=== PATIENT | male | born 1995 | race Two or more races ===

== ENCOUNTER 2022-03-03 17:36 | Inpatient (IN) | payer BC ==
[~2022-03-03] VITALS: Ht 188 cm; Wt 113.4 kg
--- NOTE | 2022-03-03 17:45 | NUR ---
FIONARA 40 C/O SEIZURE. PT SEIZING UPON ARRIVAL. PLACED ON BED, APPLIED O2 15LIT. VIA NRM SATURATING AT 98%.
[2022-03-03 18:00] LABS: BASOPHILS # (AUTO) 0.1 K/uL (0.0-0.2); BASOPHILS % (AUTO) 0.4 % (0.0-2.0); EOSINOPHILS % (AUTO) 0.1 % (0.0-6.0); HEMATOCRIT 51 % (39-51); HEMOGLOBIN 16.7 g/dL (13.5-17.5); LYMPHOCYTES # (AUTO) 2.3 K/uL (0.8-4.8); LYMPHOCYTES % (AUTO) 12.7 % (20.0-44.0); MEAN CORPUSCULAR HGB CONC 33 g/dl (31.0-36.0); MEAN CORPUSCULAR VOLUME 90 fL (80-96); MONOCYTES # (AUTO) 1.5 K/uL (0.1-1.30); MONOCYTES % (AUTO) 8.1 % (2.0-12.0); NEUTROPHILS # (AUTO) 14.2 K/uL (1.8-8.9); NEUTROPHILS % (AUTO) 78.7 % (43.0-81.0); PLATELET COUNT (AUTO) 386 K/uL (150-450); RED BLOOD CELL COUNT(AUTO) 5.62 MIL/uL (4.5-6.0); WHITE BLOOD COUNT (AUTO) 18.1 K/uL (4.3-11.0)
[2022-03-03] MEDS ORDERED: LACOSAMIDE 200 MG in IV NS 0.9% 100 ML IV ONE (18:00)
[2022-03-03] MEDS ORDERED: IV NS 0.9% 1,000 ML IV ONE ×2 (18:00→19:30)
--- NOTE | 2022-03-03 18:00 | NUR ---
IN HOUSE COUNSEL AT BEDSIDE
[2022-03-03 18:08] LABS: CALCIUM, SERUM 9.2 mg/dL (8.5-10.1); CREATININE 1.9 mg/dL (0.6-1.3); POTASSIUM 4.2 mmol/L (3.5-5.1)
--- NOTE | 2022-03-03 19:38 | NUR ---
SWAB FOR COVID19 SENT TO LAB
[2022-03-03] MEDS ORDERED: LORAZEPAM INJ 2 MG/ML VIAL ONE (20:36)
--- NOTE | 2022-03-03 20:45 | NUR ---
PATIENT HAD ANOTHER SEIZURE ATIVAN 2MG IV GIVEN. WILL CONTINUE TO MONITOR
[2022-03-03] MEDS ORDERED: LORAZEPAM INJ 2 MG/ML VIAL IV ONE (21:00)
--- NOTE | 2022-03-03 21:02 | NUR ---
[facility] PAGED PER DR DELEON,
[2022-03-03] MEDS ORDERED: ONDANSETRON HCL/PF 4 MG/2 ML VIAL IVP PRN (21:30)
[2022-03-03] MEDS ORDERED: ACETAMINOPHEN 325 MG TABLET PO PRN (21:30)
[2022-03-03] MEDS ORDERED: hydrALAZINE HCL IV 20 MG VIAL IV PRN (21:30)
[2022-03-03] MEDS ORDERED: MORPHINE SULFATE INJ 2 MG/ML DISP.SYRIN IV PRN (21:30)
[2022-03-03] MEDS ORDERED: LORAZEPAM INJ 2 MG/ML VIAL IV PRN (21:30)
[2022-03-03 22:01] LABS: BASOPHILS % (AUTO) 0.2 % (0.0-2.0); HEMATOCRIT 44 % (39-51); HEMOGLOBIN 14.7 g/dL (13.5-17.5); LYMPHOCYTES # (AUTO) 0.8 K/uL (0.8-4.8); MEAN CORPUSCULAR HGB CONC 33 g/dl (31.0-36.0); MEAN CORPUSCULAR VOLUME 91 fL (80-96); MONOCYTES % (AUTO) 7.4 % (2.0-12.0); NEUTROPHILS % (AUTO) 86.4 % (43.0-81.0); PLATELET COUNT (AUTO) 274 K/uL (150-450); RED BLOOD CELL COUNT(AUTO) 4.91 MIL/uL (4.5-6.0); WHITE BLOOD COUNT (AUTO) 13.9 K/uL (4.3-11.0)
[2022-03-03 22:15] LABS: SITE, VBG Other; VBG MetHb 0.7 %; VBG O2Hb 79.9 %; VENT MODE, VBG VBG
[2022-03-03 22:32] LABS: ALANINE AMINOTRANSFERASE 41 U/L (12-78); ALBUMIN 2.9 g/dL (3.4-5.0); ALKALINE PHOSPHATASE 70 U/L (46-116); ASPARTATE AMINOTRANSFERASE 24 U/L (15-37); BILIRUBIN,TOTAL 0.3 mg/dL (0.2-1.0); CALCIUM, SERUM 8.3 mg/dL (8.5-10.1); CARBON DIOXIDE 16 mmol/L (21-32); CHLORIDE 111 mmol/L (98-107); CREATININE 1.7 mg/dL (0.6-1.3); GLUCOSE 104 mg/dL (74-106); POTASSIUM 4.1 mmol/L (3.5-5.1); SODIUM SERUM 140 mmol/L (136-145); TOTAL PROTEIN, SERUM 6.5 g/dL (6.4-8.2); UREA NITROGEN, BLOOD 16 mg/dL (7-18)
--- NOTE | 2022-03-03 23:19 | NUR ---
REPORT GIVEN TO [facility] ROOM 317-1 FOR SOPHIA
[2022-03-04 00:01] LABS: BILIRUBIN,DIRECT 0.2 mg/dL (0.0-0.2)
--- NOTE | 2022-03-04 00:17 | NUR ---
noc rn note just got off the phone with patient's Diane # [phone]. made aware of patient's condition and asked to bring list of patient's home medications tomorrow when she visits. all questions and concerns answered.
--- NOTE | 2022-03-04 00:19 | NUR ---
noc rn note returned call to [facility]. about codeine allergy, that per patient's , mom said that Morphine is okay but unknown if patient ever had morphine. asked pharmacist to hold medication for now till further clarification is made when and mom visits tomorrow.
[2022-03-04] MEDS: IV NS 0.9% 1,000 ML IV SCH ×2 (00:44→11:13)
--- NOTE | 2022-03-04 01:46 | NUR ---
ADMISSION RN NOTE PATIENT BROUGHT IN UNIT AT 2330 PM ACCOMPANIED BY 2 ER PERSONNELS VIA Ovuline. NO S/S OF APPARENT DISTRESS ON 3LPM OF O2 VIA DE. PATIENT VERY SOMNOLENT WHEN HE WAS TRANSFERRED IN UNIT AND COULD BARELY OPEN HIS EYES BUT PERRLA WAS NOTED. BELONGINGS CHECKED. NEW ID BAND ON PATIENT. IV ACCESS NOTED ON RIGHT AC #20G-- STARTED ON NS @75MLS/HR ORDERED. PATIENT SPOUSE WAS CALLED FOR ADMISSION QUESTION. PATIENT PUT FULL CODE FOR NOW WISHES. PATIENT DOES NOT SMOKE AND PER , PATIENT HAS ONLY BEEN DRINKING LAST WEEK WINE, ETC. AND ALSO HAS NOT BEEN DRINKING WATER WHICH PER MAY HAVE TRIGGERED THE PATIENTS SEIZURES. PER PATIENT IS UP-TO-DATE WITH HER FLU AND COVID VACCINES, EVEN THE BOOSTER BUT UNKNOWN TO WHEN THE DATES ARE. PATIENT ON TELE MONITOR READING ST ON ADMISSION 122 BPM AND CURRENTLY SR AT THIS TIME WITH 94 BPM. ADMISSION V/S FOLLOWS: 123/78, HR 118, RR-20, SATURATION 100% ON 3LPM OF O2, AND TEMP 99.5. SEIZURE PRECAUTION IN PLACE, SAFETY IN PLACE. WILL MONITOR PATIENT FOR NOW.
--- NOTE | 2022-03-04 03:15 | NUR ---
noc rn note patient woke up at around 0300 am and got up of bed, was very confused and still disoriented. not answering questions. just got up and flagged his penis around and peed all over the floor and bed also pulling out his lines like his condom cath and trying to pull out his IV line. RN and SUBCONTRACT ADMINISTRATOR present at that time so no harm was done on the patient and eventually went back to bed and slept. will continue to monitor.
[2022-03-04 04:00] VITALS: BP 130/80
[2022-03-04 07:00] VITALS: BP 132/80
[2022-03-04 07:29] LABS: ALBUMIN 3.4 g/dL (3.4-5.0); BILIRUBIN,TOTAL 0.5 mg/dL (0.2-1.0); CALCIUM, SERUM 8.8 mg/dL (8.5-10.1); CREATININE 1.4 mg/dL (0.6-1.3); MAGNESIUM 2.5 mg/dL (1.8-2.4); PHOSPHORUS 3.2 mg/dL (2.5-4.9); POTASSIUM 3.7 mmol/L (3.5-5.1); TOTAL PROTEIN, SERUM 6.9 g/dL (6.4-8.2)
--- NOTE | 2022-03-04 07:52 | NUR ---
RN OPENING NOTE Patient is now alert, oriented x 3 to 4, verbally responsive. No signs of seizure activity, PERRLA, no signs of distress, denies pain. Patient stated he was able to sleep some during the night. Lung sounds clear to auscultation, positive bowel sounds, heart sounds WNL. Telemetry reading shows a range of NSR 80s/90s to ST in 100s. Safety measures in place with seizure precautions with wall suction in place and padded siderails with bed in low position, siderails up, and call light within reach. Identification band secure on wrist and correct.
[2022-03-04 07:55] LABS: BASOPHILS % (AUTO) 0.2 % (0.0-2.0); HEMATOCRIT 43 % (39-51); HEMOGLOBIN 14.9 g/dL (13.5-17.5); LYMPHOCYTES # (AUTO) 1.6 K/uL (0.8-4.8); LYMPHOCYTES % (AUTO) 13.6 % (20.0-44.0); MEAN CORPUSCULAR HGB CONC 35 g/dl (31.0-36.0); MEAN CORPUSCULAR VOLUME 88 fL (80-96); MONOCYTES # (AUTO) 1.1 K/uL (0.1-1.30); MONOCYTES % (AUTO) 9.3 % (2.0-12.0); NEUTROPHILS # (AUTO) 8.9 K/uL (1.8-8.9); NEUTROPHILS % (AUTO) 76.9 % (43.0-81.0); PLATELET COUNT (AUTO) 264 K/uL (150-450); RED BLOOD CELL COUNT(AUTO) 4.85 MIL/uL (4.5-6.0); WHITE BLOOD COUNT (AUTO) 11.5 K/uL (4.3-11.0)
[2022-03-04] MEDS: LamoTRIgine 100 MG TABLET PO SCH ×2 (08:41→20:25)
[2022-03-04] MEDS ORDERED: LACOSAMIDE 200 MG in IV NS 0.9% 100 ML IV SCH ×4 (09:00)
[2022-03-04] MEDS ORDERED: TOPIRAMATE 100 MG TABLET PO SCH (09:00)
[2022-03-04] MEDS ORDERED: LACO200T2 PO (09:08)
[2022-03-04] MEDS ORDERED: TOPI200C6 PO (09:08)
[2022-03-04] MEDS ORDERED: LAMO200T52 PO (09:08)
[2022-03-04] MEDS ORDERED: DIAZ10TA4 PO (09:11)
[2022-03-04] MEDS: LACOSAMIDE 200 MG in IV NS 0.9% 100 ML IV SCH ×2 (09:28→20:21)
[2022-03-04 10:08] LABS: CALCIUM, SERUM 8.9 mg/dL (8.5-10.1); MAGNESIUM 2.4 mg/dL (1.8-2.4)
[2022-03-04 12:00] VITALS: BP 136/87
[2022-03-04] MEDS: TROKENDI 200 MG PO SCH (15:47)
[2022-03-04 16:00] VITALS: BP 130/82
[2022-03-04] MEDS ORDERED: TOPIRAMATE 200 MG PO SCH (18:00)
--- NOTE | 2022-03-04 18:27 | NUR ---
RN Closing Note- Patient is now alert, oriented x person , verbally responsive. No signs of seizure activity, PERRLA,. Lung sounds clear to auscultation, positive bowel sounds, heart sounds WNL. Telemetry reading shows a range of NSR 80s/90s. CT neg, labs WNL, more interactive. Safety measures in place with seizure precautions with wall suction in place and padded siderails with bed in low position, siderails up, and call light within reach.
[2022-03-04 18:44] LABS: BILIRUBIN,URINE NEGATIVE (NEGATIVE); COLOR,URINE YELLOW (YELLOW); LEUKOCYTE ESTERASE ,URINE NEGATIVE (NEGATIVE); NITRITE, URINE NEGATIVE (NEGATIVE); PROTEIN,URINE NEGATIVE (NEGATIVE); UGLUCOSE NEGATIVE (NEGATIVE); UROBILINOGEN,URINE 0.2 EU/dL (0.2)
--- NOTE | 2022-03-04 20:00 | NUR ---
RN OPENING NOTES RECEIVED PATIENT LYING AWAKE IN BED. A/O X3. BREATHING IN ROOM AIR, TOLERATING WELL. IV ACCESS AT RIGHT AC #20, INFUSING NS 75ML/HR, PATENT AND INFUSING WELL. NO SIGNS OF RESPIRATORY DISTRESS. ON SEIZURE PRECAUTION, PADDED SIDE RAILS. SAFETY PRECAUTIONS INITIATED, SIDE RAILS UP, BED LOCKED AND LOWERED, CALL LIGHT WITHIN REACH. WILL CONTINUE TO MONITOR.
[2022-03-05] MEDS: IV NS 0.9% 1,000 ML IV SCH (00:45)
[2022-03-05 06:36] LABS: BASOPHILS % (AUTO) 0.3 % (0.0-2.0); EOSINOPHILS % (AUTO) 1.4 % (0.0-6.0); HEMATOCRIT 40 % (39-51); HEMOGLOBIN 13.6 g/dL (13.5-17.5); LYMPHOCYTES % (AUTO) 37.1 % (20.0-44.0); MEAN CORPUSCULAR HGB CONC 34 g/dl (31.0-36.0); MEAN CORPUSCULAR VOLUME 88 fL (80-96); MONOCYTES % (AUTO) 11.7 % (2.0-12.0); NEUTROPHILS % (AUTO) 49.5 % (43.0-81.0); PLATELET COUNT (AUTO) 242 K/uL (150-450); RED BLOOD CELL COUNT(AUTO) 4.49 MIL/uL (4.5-6.0); WHITE BLOOD COUNT (AUTO) 8.2 K/uL (4.3-11.0)
--- NOTE | 2022-03-05 06:55 | NUR ---
RN CLOSING NOTES PATIENT LYING ASLEEP IN BED. A/O X3. BREATHING IN ROOM AIR, TOLERATING WELL. IV ACCESS AT RIGHT AC #20, INFUSING NS 75ML/HR, PATENT AND INFUSING WELL. NO SIGNS OF RESPIRATORY DISTRESS. DUE MEDS GIVEN. ON SEIZURE PRECAUTION, PADDED SIDE RAILS. SAFETY PRECAUTIONS INITIATED, SIDE RAILS UP, BED LOCKED AND LOWERED, CALL LIGHT WITHIN REACH. WILL ENDORSE TO NEXT SHIFT RN FOR SOPHIA.
[2022-03-05 06:57] LABS: CALCIUM, SERUM 8.6 mg/dL (8.5-10.1); CREATININE 1.3 mg/dL (0.6-1.3); MAGNESIUM 2.1 mg/dL (1.8-2.4); PHOSPHORUS 3.8 mg/dL (2.5-4.9); POTASSIUM 3.5 mmol/L (3.5-5.1)
--- NOTE | 2022-03-05 07:50 | NUR ---
RN OPENING NOTES RECEIVED PATIENT LYING AWAKE IN BED. A/O X3. MUCH MORE INTERACTIVE THAN PREVIOUSLY REPORTED. HIS AFFECT IS APPROPRIATE, EATING BREAKFAST. BREATHING IN ROOM AIR, TOLERATING WELL. IV ACCESS AT RIGHT AC #20, INFUSING NS 75ML/HR, PATENT AND INFUSING WELL. NO SIGNS OF RESPIRATORY DISTRESS OR SEIZURE ACTIVITY. ON SEIZURE PRECAUTION, PADDED SIDE RAILS. SAFETY PRECAUTIONS INITIATED, SIDE RAILS UP, BED LOCKED AND LOWERED, CALL LIGHT WITHIN REACH. WILL CONTINUE TO MONITOR.
[2022-03-05] MEDS: LACOSAMIDE 200 MG in IV NS 0.9% 100 ML IV SCH (09:06)
[2022-03-05] MEDS: LamoTRIgine 100 MG TABLET PO SCH (09:07)
[2022-03-05] MEDS: TROKENDI 200 MG PO SCH (09:07)
[2022-03-05] MEDS ORDERED: TOPI200T PO (09:57)
[2022-03-05] MEDS ORDERED: LAMO100T2 PO (09:57)
[2022-03-05] MEDS ORDERED: LACO200T2 PO (09:57)
--- NOTE | 2022-03-05 12:13 | NUR ---
WAX POT TENDER NOTE PT MEDICALLY CLEARED FOR DISCHARGE. NO SEIZURE ACTIVITY REPORTED. VS STABLE. A/O X4. IV REMOVED. ID WRIST BAND REMOVED. PLAN OF CARE REVIEWED AND UNDERSTOOD. HOME MEDICATIONS RETURNED TO THE PT. ESCORTED OFF UNIT WITH FAMILY AND STAFF.
[2022-03-05] MEDS ORDERED: LACOSAMIDE 50 MG TABLET PO SCH (21:00)
== END 2022-03-05 11:55 | disposition home or self-care (01) | DRG 100 ==
LOC: ER 19:38 → TELE 23:30
PROVIDERS: ADMIT Internal Medicine; ATTEND Nurse Practitioner Acute Care
DX: G40.509 Epileptic seizures related to external causes, not intractable, without status epilepticus (principal); G93.41 Metabolic encephalopathy; N17.0 Acute kidney failure with tubular necrosis; E44.1 Mild protein-calorie malnutrition; E87.20 Acidosis, unspecified; M62.82 Rhabdomyolysis; G40.409 Other generalized epilepsy and epileptic syndromes, not intractable, without status epilepticus; E86.0 Dehydration; Z20.822 Contact with and (suspected) exposure to COVID-19; Z79.899 Other long term (current) drug therapy; D72.829 Elevated white blood cell count, unspecified; E88.09 Other disorders of plasma-protein metabolism, not elsewhere classified; F10.90 Alcohol use, unspecified, uncomplicated; Y90.0 Blood alcohol level of less than 20 mg/100 ml
CPT/HCPCS: 36415; 70450-TC; 71045-TC; 80048-TC; 80053-TC; 82248-TC; 82310-TC; 82550-TC; 82803-TC; 82962-TC; 83605-TC; 83735-TC; 84100-TC; 85025-TC; 87081-TC; A4349; C9803; G0378; G0480; J2060; J7030

== ENCOUNTER 2022-10-26 11:42 | Inpatient (IN) | payer OTHER ==
[~2022-10-26] VITALS: Ht 182.9 cm; Wt 102.1 kg
[~2022-10-26 11:42] MED LIST: DIAZ10TA4 PO; LACO200T2 PO; LAMO200T52 PO; TOPI200C6 PO
[2022-10-26] MEDS ORDERED: LORAZEPAM INJ 2 MG/ML VIAL ONE (11:46)
[2022-10-26] MEDS ORDERED: LEVETIRACETAM (500MG) 1,000 MG in IV NS 0.9% 100 ML IV STA (11:55)
[2022-10-26] MEDS ORDERED: LORAZEPAM INJ 2 MG/ML VIAL IV ONE (12:00)
[2022-10-26] MEDS ORDERED: IV NS 0.9% 1,000 ML BAG IV ONE (12:00)
[2022-10-26 12:06] LABS: BASOPHILS # (AUTO) 0.1 K/uL (0.0-0.2); BASOPHILS % (AUTO) 0.4 % (0.0-2.0); EOSINOPHILS % (AUTO) 0.6 % (0.0-6.0); HEMATOCRIT 48 % (39-51); HEMOGLOBIN 15.7 g/dL (13.5-17.5); LYMPHOCYTES # (AUTO) 3.7 K/uL (0.8-4.8); LYMPHOCYTES % (AUTO) 23.1 % (20.0-44.0); MEAN CORPUSCULAR HGB CONC 33 g/dl (31.0-36.0); MEAN CORPUSCULAR VOLUME 91 fL (80-96); MONOCYTES # (AUTO) 1.9 K/uL (0.1-1.30); MONOCYTES % (AUTO) 11.6 % (2.0-12.0); NEUTROPHILS # (AUTO) 10.3 K/uL (1.8-8.9); NEUTROPHILS % (AUTO) 64.3 % (43.0-81.0); PLATELET COUNT (AUTO) 337 K/uL (150-450); WHITE BLOOD COUNT (AUTO) 16.1 K/uL (4.3-11.0)
[2022-10-26 12:15] LABS: CALCIUM, SERUM 9.4 mg/dL (8.5-10.1); CARBON DIOXIDE 12 mmol/L (21-32); CHLORIDE 109 mmol/L (98-107); CREATININE 1.7 mg/dL (0.6-1.3); GLUCOSE 129 mg/dL (74-106); POTASSIUM 3.5 mmol/L (3.5-5.1); SODIUM SERUM 146 mmol/L (136-145); UREA NITROGEN, BLOOD 17 mg/dL (7-18)
--- NOTE | 2022-10-26 12:15 | NUR ---
[id number] [facility]M HOME HAD SEIZURE AT 0230 AND 0930 PER EMS. ALSO HAD ANOTHER SEIZURE WHILE BEING TRIAGE. PT IS A/O X0 UPON ARRIVAL TO ER BREATHING WAS EVEN AND UNLABORED. RR 15 ON NRB SATTING 98%. SEIZURE PRCAUTIONS IN HIGH FOWLERS. BED LOCKED SIDE RAILS UP. TACHY AT 132, OTHERWISE VITAL WNL.
[2022-10-26 12:21] LABS: ALANINE AMINOTRANSFERASE 33 U/L (12-78); ALBUMIN 4.3 g/dL (3.4-5.0); ALCOHOL, BLOOD < 3 mg/dL (0-10); ALKALINE PHOSPHATASE 116 U/L (46-116); ASPARTATE AMINOTRANSFERASE 20 U/L (15-37); BILIRUBIN,DIRECT 0.1 mg/dL (0.0-0.2); BILIRUBIN,TOTAL 0.3 mg/dL (0.2-1.0); TOTAL PROTEIN, SERUM 8.5 g/dL (6.4-8.2)
--- NOTE | 2022-10-26 12:39 | NUR ---
URINE COLLECTED AND SEND TO LAB.
--- NOTE | 2022-10-26 12:45 | NUR ---
BELONGINGS LIST COMPLETED
--- NOTE | 2022-10-26 13:45 | NUR ---
ARM IMMOBILIZER PROVIDED FOR RIGHT ARM. PLACED IN SLING.
--- NOTE | 2022-10-26 14:07 | NUR ---
AUTOMATION CONTROLS EXPERT AT BEDSIDE TO ASSESS REDUCTION Addendum: 10/26/22 at 1433 by BRINA PT STATED THAT HE HAS A HISTORY OF DISLOCATAION
--- NOTE | 2022-10-26 14:30 | NUR ---
PATIENT RECEIVED FROM ER IN STABLE CONDITION. PT DIAGNOSED WITH SEIZURE AND R SHOULDER DISLOCATION. PATIENT IS ALERT AND ORIENTED X3. ON ROOM AIR SATING AT 98%. ON BRAIDER SETTER READING SR 98. L HAND 20G SALINE LOCKED, INTACT AND PATENT. PATIENT IS ON REGULAR DIET. FULL CODE STATUS. NO ISOLATION. ALLERGY TO CODEINE. SAFETY PRECAUTIONS IN PLACE WITH BED IN LOWEST LOCKED POSITION, SIDE RAILS UP X2, BED ALARM ON, URINAL, CALL LIGHT AND BEDSIDE TABLE WITHIN REACH. SEIZURE PRECAUTIONS IN PLACE WITH PADDED RAILS AND SUCTION AT BEDSIDE. WILL CONTINUE TO MONITOR. Addendum: 10/26/22 at 1816 by COLTEN VINCENT RN PLEASE DISREGARD. TIME IS INCORRECT.
[2022-10-26] MEDS ORDERED: ONDANSETRON HCL/PF 4 MG/2 ML VIAL IVP PRN (15:00)
[2022-10-26] MEDS ORDERED: MAGNESIUM HYDROXIDE 30 ML UDC PO PRN (15:00)
[2022-10-26] MEDS ORDERED: MAG HYDROX/AL HYDROX/SIMETH 30 ML UDC PO PRN (15:00)
[2022-10-26] MEDS ORDERED: ACETAMINOPHEN 325 MG TABLET PO PRN (15:00)
[2022-10-26] MEDS ORDERED: LORAZEPAM INJ 2 MG/ML VIAL IV PRN (15:00)
[2022-10-26 16:00] VITALS: BP 120/75; TEMP 99.3; O2SAT 98
--- NOTE | 2022-10-26 16:25 | NUR ---
PT TRANSFERED TO [facility] WITH ACLS PROTCAL. PT REMAINED STABLE THROUGHT TRANSFER. BEDSIDE NURSE PRESENT TO RECIEVE PT.
--- NOTE | 2022-10-26 16:30 | NUR ---
PATIENT RECEIVED FROM ER IN STABLE CONDITION. PT DIAGNOSED WITH SEIZURE AND R SHOULDER DISLOCATION. PATIENT IS ALERT AND ORIENTED X3. ON ROOM AIR SATING AT 98%. ON C JAVA DEVELOPER READING SR 98. L HAND 20G SALINE LOCKED, INTACT AND PATENT. PATIENT IS ON REGULAR DIET. FULL CODE STATUS. NO ISOLATION. ALLERGY TO CODEINE. SAFETY PRECAUTIONS IN PLACE WITH BED IN LOWEST LOCKED POSITION, SIDE RAILS UP X2, BED ALARM ON, URINAL, CALL LIGHT AND BEDSIDE TABLE WITHIN REACH. SEIZURE PRECAUTIONS IN PLACE WITH PADDED RAILS AND SUCTION AT BEDSIDE. WILL CONTINUE TO MONITOR.
[2022-10-26] MEDS: LACOSAMIDE ORAL SOLN 50 MG/5 ML UDC PO SCH ×2 (17:41→22:29)
[2022-10-26] MEDS: LamoTRIgine 100 MG TABLET PO SCH (17:42)
[2022-10-26] MEDS ORDERED: TOPIRAMATE 100 MG TABLET PO SCH (18:00)
[2022-10-26] MEDS: IV NS 0.9% 1,000 ML IV PRN (18:15)
--- NOTE | 2022-10-26 18:31 | NUR ---
SENIOR DATA QUALITY ANALYST CLOSING NOTE PATIENT IN BED ASLEEP WITH FAMILY AT BEDSIDE. EASILY AROUSABLE TO NAME. PATIENT IS ALERT AND ORIENTED X3. ON ROOM AIR SATING AT 98%. ON IMPORT/EXPORT ADMINISTRATOR READING SR 98. L HAND 20G SALINE LOCKED, INTACT AND PATENT RUNNING NS AT 75 ML/HR. ALL DUE MEDS GIVEN. SAFETY PRECAUTIONS IN PLACE WITH BED IN LOWEST LOCKED POSITION, SIDE RAILS UP X2, BED ALARM ON, URINAL, CALL LIGHT AND BEDSIDE TABLE WITHIN REACH. SEIZURE PRECAUTIONS IN PLACE WITH PADDED RAILS AND SUCTION AT BEDSIDE. WILL ENDORSE TO ONCOMING SHIFT. Addendum: 10/26/22 at 1840 by COLTEN VINCENT RN PATIENT IS ALERT AND ORIENTED X4.
[2022-10-26 20:00] VITALS: BP 120/75; TEMP 97.6; O2SAT 100
--- NOTE | 2022-10-26 20:00 | NUR ---
JUICE BAR TEAM MEMBER opening NOTE RECEIVED PATIENT IN BED ALERT AND ORIENTED X4. ON ROOM AIR SATING AT 96%.NO SOB NO DISTRESS NOTED V/S STABLE AFEBRILE ON TRANSLATOR/INTERPRETER READING SR 98. L HAND 20G INTACT AND PATENT RUNNING NS AT 75 ML/HR. ALL DUE MEDS GIVEN. SAFETY PRECAUTIONS IN PLACE WITH BED IN LOWEST LOCKED POSITION, SIDE RAILS UP X2, BED ALARM ON, URINAL, CALL LIGHT AND BEDSIDE TABLE WITHIN REACH. SEIZURE PRECAUTIONS IN PLACE WITH PADDED RAILS AND SUCTION AT BEDSIDE.WILL CONTINUE TO MONITOR PTS.
[2022-10-27] VITALS: BP 112/70; TEMP 98.8; O2SAT 96
--- NOTE | 2022-10-27 00:22 | NUR ---
UNDERWATER WELDER NOTES NO SEIZURE ACTIVITY NOTED.
[2022-10-27 04:00] VITALS: BP 102/66; TEMP 98.4; O2SAT 97
--- NOTE | 2022-10-27 07:10 | NUR ---
RN NOTE RECEIVED PATIENT IN BED RESTING ALERT ORIETNEDX3 VERBALLY RESPONSIVE ON ROOM AIR O2:99% IV ACCESS ON LEFT HAND INTACT PATENT ON NS 75CC/HR,CONTIENT BOWEL/BLADDER SAFETY MEASURE IMPLEMENT BED IN LOW POSITION AND LOCKED,CALL LIGHT WITHIN REACH,SEIZURE PRECAUTION IMPLEMENT HEAD OF THE BED ELEVATED CONTINUE TO MONITOR.
[2022-10-27] MEDS ORDERED: PANTOPRAZOLE 40 MG TABLET.DR PO SCH (07:30)
[2022-10-27 07:35] LABS: BASOPHILS % (AUTO) 0.5 % (0.0-2.0); EOSINOPHILS % (AUTO) 1.6 % (0.0-6.0); HEMATOCRIT 39 % (39-51); HEMOGLOBIN 13.2 g/dL (13.5-17.5); LYMPHOCYTES # (AUTO) 2.3 K/uL (0.8-4.8); LYMPHOCYTES % (AUTO) 34.4 % (20.0-44.0); MEAN CORPUSCULAR HGB CONC 34 g/dl (31.0-36.0); MEAN CORPUSCULAR VOLUME 88 fL (80-96); MONOCYTES # (AUTO) 0.8 K/uL (0.1-1.30); MONOCYTES % (AUTO) 12.3 % (2.0-12.0); NEUTROPHILS # (AUTO) 3.4 K/uL (1.8-8.9); NEUTROPHILS % (AUTO) 51.2 % (43.0-81.0); PLATELET COUNT (AUTO) 236 K/uL (150-450); RED BLOOD CELL COUNT(AUTO) 4.38 MIL/uL (4.5-6.0); WHITE BLOOD COUNT (AUTO) 6.7 K/uL (4.3-11.0)
--- NOTE | 2022-10-27 07:35 | NUR ---
PULL THROUGH HOOKER CLOSING NOTE PATIENT IN BED AWAKE , ALERT AND ORIENTED X3. ON ROOM AIR SATING AT 98%. ON BIO MEDICAL TECHNICIAN READING SR 99. L HAND 20G SALINE LOCKED, INTACT AND PATENT RUNNING NS AT 75 ML/HR. ALL DUE MEDS GIVEN. SAFETY PRECAUTIONS IN PLACE WITH BED IN LOWEST LOCKED POSITION, SIDE RAILS UP X2, BED ALARM ON, URINAL, CALL LIGHT AND BEDSIDE TABLE WITHIN REACH. SEIZURE PRECAUTIONS IN PLACE WITH PADDED RAILS AND SUCTION AT BEDSIDE. WILL ENDORSE TO ONCOMING SHIFT.NO SEIZURE ACTIVITY NOTED.
[2022-10-27] MEDS: IV NS 0.9% 1,000 ML IV PRN (07:38)
[2022-10-27 07:57] LABS: CALCIUM, SERUM 8.6 mg/dL (8.5-10.1); CREATININE 1.1 mg/dL (0.6-1.3); MAGNESIUM 2.2 mg/dL (1.8-2.4); PHOSPHORUS 3.4 mg/dL (2.5-4.9); POTASSIUM 3.6 mmol/L (3.5-5.1)
[2022-10-27 08:00] VITALS: BP 110/71; TEMP 97.8; O2SAT 100
[2022-10-27] MEDS: LamoTRIgine 100 MG TABLET PO SCH (08:03)
[2022-10-27] MEDS: LACOSAMIDE ORAL SOLN 50 MG/5 ML UDC PO SCH (08:07)
[2022-10-27 12:00] VITALS: BP 118/73; TEMP 98.5; O2SAT 100
--- NOTE | 2022-10-27 15:35 | NUR ---
RN NOTE PATIENT DISCHARGE HOME,ALERT ORIENTED X4 VERBALLY RESPONSIVE ON ROOM AIR NO SOB NOT ACUTE DISTRESS NOTED,NO PAIN HE SIGNED ALL DISCHARGE PAPERS AND BELONGINGS,IV ACCESS REMOVED NO BLEEDING NOTED DRESSING INTACT,EDUCATION PROVIDED REGARDING MEDS AND FOLLOWING UP WITH PCP HE VERBALIZED UNDERSTOOD ALL TEACHING,HE LEFT HOSPITAL IN STABLE CONDITION,WITH HIS BY PRIVATE CAR.
== END 2022-10-27 21:08 | disposition home or self-care (01) | DRG 101 ==
LOC: ER 11:55 → TELE1 15:44
PROC: 0RSJXZZ Reposition Right Shoulder Joint, External Approach (ICD-10-PCS; principal; 2022-10-26)
DX: G40.909 Epilepsy, unspecified, not intractable, without status epilepticus (principal); E87.0 Hyperosmolality and hypernatremia; D72.829 Elevated white blood cell count, unspecified; M24.411 Recurrent dislocation, right shoulder; N28.9 Disorder of kidney and ureter, unspecified; Z91.199 Patient's noncompliance with other medical treatment and regimen due to unspecified reason
CPT/HCPCS: 36415; 70450-TC; 71045-TC; 73030-TC; 80048-TC; 80076-TC; 83735-TC; 84100-TC; 85025-TC; A4223; G0378; G0480; G0500; J1953; J2060; J7030